=== PATIENT | male | born 1970 | race Two or more races ===

== ENCOUNTER 2021-01-03 13:29 | Emergency (ER) | payer SELFPAY ==
[~2021-01-03] VITALS: Ht 172.7 cm; Wt 81.6 kg
[2021-01-03 14:55] VITALS: BP 126/88
== END 2021-01-03 15:10 ==
LOC: ER 13:35
DX: Z02.89 Encounter for other administrative examinations (principal); Z98.890 Other specified postprocedural states; Z60.2 Problems related to living alone